=== PATIENT | male | born 1975 | race Caucasian/White ===

== ENCOUNTER 2019-10-13 16:06 | Emergency (ER) | payer MEDICARE, MEDICAID ==
[~2019-10-13] VITALS: Ht 175.3 cm; Wt 88.7 kg
[2019-10-13 16:07] VITALS: BP 138/75
[2019-10-13] MEDS ORDERED: ASPI81CH33 PO (16:14)
[2019-10-13] MEDS ORDERED: TAMS1CAP17 PO (16:14)
[2019-10-13] MEDS ORDERED: ONDA-83 (16:14)
[2019-10-13] MEDS ORDERED: LISI10TA4 PO (16:14)
[2019-10-13] MEDS ORDERED: OXYC1TAB23 PO (16:14)
[2019-10-13] MEDS ORDERED: CLOP75TA2 PO (16:14)
[2019-10-13] MEDS ORDERED: METO50TA7 PO (16:30)
[2019-10-13] MEDS ORDERED: FLUO10CA15 PO (16:30)
[2019-10-13] MEDS ORDERED: ROSU40TA4 PO (16:30)
--- NOTE | 2019-10-13 23:45 | REP ---
HAND: REASON FOR EXAM: Trauma. PRIORS: None. FINDINGS: The joint spaces are symmetric and relatively well maintained. There is no evidence of acute fracture or destructive osseous lesion. IMPRESSION: Negative. Electronically Signed by Jez Colon DO 10/14/2019 08:07 A
== END 2019-10-13 17:02 | disposition home or self-care (01) ==
LOC: M ED 16:06
DX: S60.042A Contusion of left ring finger without damage to nail, initial encounter (principal); W23.0XXA Caught, crushed, jammed, or pinched between moving objects, initial encounter; Y92.009 Unspecified place in unspecified non-institutional (private) residence as the place of occurrence of the external cause; Y99.8 Other external cause status; I25.2 Old myocardial infarction; Z79.02 Long term (current) use of antithrombotics/antiplatelets; F17.200 Nicotine dependence, unspecified, uncomplicated; Z79.82 Long term (current) use of aspirin; Z79.899 Other long term (current) drug therapy
CPT/HCPCS: 73130; 99282; G0463

== ENCOUNTER 2019-10-31 06:36 | Day surgery (SDC) | payer MEDICARE, MEDICAID ==
[~2019-10-31] VITALS: Ht 175.3 cm; Wt 89.4 kg
[~2019-10-31 06:36] MED LIST: ASPI81CH33 PO; CLOP75TA2 PO; FLUO10CA15 PO; LIDOCAINE 1% MDV 20ML VIAL SQ PRN; LISI10TA4 PO; LR 1,000 ML IV ONE; METO50TA7 PO; ONDA-83; OXYC1TAB23 PO; ROSU40TA4 PO; TAMS1CAP17 PO; ceFAZolin SOD 2 GM in IV 1 EA IV ONE
[2019-10-31] MEDS ORDERED: ASPIRIN 81 MG CHEW TABLET PO ONE (07:15)
[2019-10-31] MEDS ORDERED: propofoL 200 MG/20 ML VIAL As Ordered ONE (07:21)
[2019-10-31] MEDS ORDERED: LIDOCAINE 2% 100MG/5ML SDV (FOR ANES.) As Ordered ONE (07:21)
[2019-10-31] MEDS ORDERED: dexameTHASONE 4 MG/ML 1ML VIAL (J1100 PER 1MG) As Ordered ONE (07:21)
[2019-10-31] MEDS ORDERED: fentaNYL 100 MCG/2 ML INJECTION (J3010) As Ordered ONE (07:21)
[2019-10-31] MEDS ORDERED: MIDAZOLAM INJ 2MG/2ML VIAL (J2250 PER 1MG) As Ordered ONE (07:22)
[2019-10-31] MEDS ORDERED: ISOVUE-300 61% 50ML VIAL As Ordered ONE (07:23)
[2019-10-31] MEDS ORDERED: ONDANSETRON 4MG/2ML VIAL As Ordered ONE (09:01)
[2019-10-31] MEDS ORDERED: ACETAMINOPHEN 1000MG 100ML IV BTL (OFIRMEV) (J0131 PER 10MG) As Ordered ONE (09:02)
[2019-10-31] MEDS ORDERED: LACRILUBE (AKWA TEARS) OPHTH OINT 3.5 GM As Ordered ONE (09:14)
--- NOTE | 2019-10-31 09:30 | REP ---
Retrograde pyelogram: Two views. History: Left stent placement. 13 seconds of fluoroscopy time is reported. Findings: A sequence of two last image hold fluoroscopically obtained spot radiographs of the abdomen document left ureteral cannulation, contrast injection, and stent placement. . Electronically Signed by Luiz Abel MD 10/31/2019 09:21 A
[2019-10-31] MEDS ORDERED: ONDANSETRON 4MG/2ML VIAL IV PRN (09:45)
[2019-10-31] MEDS ORDERED: PERCOCET 5MG/325MG TAB PO PRN (09:45)
[2019-10-31] MEDS ORDERED: fentaNYL 100 MCG/2 ML INJECTION (J3010) IV PRN (09:45)
[2019-10-31] MEDS ORDERED: LR 1,000 ML IV SCH (09:45)
[2019-10-31 10:00] VITALS: BP 164/94
--- NOTE | 2019-11-03 16:29 | RO ---
DATE OF PROCEDURE: 10/31/2019 PREPROCEDURE DIAGNOSIS: Left ureteral stone. POSTPROCEDURE DIAGNOSIS: Left ureteral stone. PROCEDURE: Cystoscopy, left ureteroscopy with laser lithotripsy and basket extraction of stones, left retrograde pyelogram with intraoperative interpretation of images, left ureteral stent placement. SURGEON: Sy Allen MD AUDIT TECH: None. ANESTHESIA: General. OPERATIVE INDICATIONS: This is a 43-year-old male who was found to have an obstructing 7 mm proximal left ureteral stone. He was brought to the operating room today for treatment. DESCRIPTION OF PROCEDURE: The patient was brought to the operating room and general anesthesia was induced. Prophylactic antibiotics were infused. He was then placed in the dorsal lithotomy position, then prepped and draped in the usual sterile fashion. A rigid cystoscope was inserted into the urethral meatus and advanced to the bladder. A guidewire was advanced up the left collecting system. A ureteral access sheath was then advanced up the left collecting system. I went up the access sheath with a flexible ureteroscope and within the proximal ureter a 7 mm stone was seen. The stone was fragmented into smaller pieces using a 272 micron laser fiber, and then all the fragments were removed using a basket. The left kidney was thoroughly examined and no additional stone fragments remained other than tiny stone debris. I then shot a retrograde pyelogram and it was notable for mild left hydronephrosis but no extravasation. I then withdrew the ureteroscope along with the access sheath and no additional stones were seen inside the ureter. I then utilized the previously placed wire to advance a 6 Thai x 22-32 cm JJ ureteral stent into the left collecting system. The wire was removed and there were adequate curls of the stent in the left renal pelvis and in the bladder. The bladder was emptied of all fluids and this marked the conclusion of the procedure. The patient was taken out of dorsal lithotomy position, awakened from anesthesia and transported to the recovery room in stable condition. ESTIMATED BLOOD LOSS: 5 mL. COMPLICATIONS: None. SPECIMENS: Kidney stone fragments. PLAN: The patient will followup in clinic in a few weeks for stent removal. HARRIS
== END 2019-10-31 10:37 | disposition home or self-care (01) ==
LOC: M SDC 06:36
PROVIDERS: ATTEND Urology
DX: N20.0 Calculus of kidney (principal); I25.2 Old myocardial infarction; I10 Essential (primary) hypertension; Z98.61 Coronary angioplasty status; K21.9 Gastro-esophageal reflux disease without esophagitis; Z79.82 Long term (current) use of aspirin; Z79.899 Other long term (current) drug therapy
CPT/HCPCS: 52356; 74420; 82365; 88300; C1769; C1894; C2617; J0131; J0690; J1100; J2250; J2405; J3010; Q9967